=== PATIENT | male | born 1970 | race Caucasian/White ===

== ENCOUNTER 2022-03-16 14:18 | Emergency (ER) | payer BC, MEDICAID ==
[~2022-03-16] VITALS: Ht 188 cm; Wt 73.0 kg
[2022-03-17 03:20] LABS: Basophils # (auto) 0.1 10 ^3/uL (0-0.2); Eosinophils # (auto) 0 10 ^3/uL (0-0.8)
[2022-03-17 03:22] LABS: Basophils % (auto) 0.9 % (0.0-2.0); Eosinophils % (auto) 0.6 % (0.0-7.0); Hematocrit 37.8 % (41.0-53.0); Hemoglobin 12.9 g/dL (13.5-17.5); Lymphocytes % (auto) 25.7 % (10.0-50.0); Mean Corpuscular Hgb Conc. 34.2 g/dL (32.0-36.0); Mean Corpuscular Volume 108.1 fL (80.0-100.0); Monocytes # (auto) 0.8 10 ^3/uL (0-1.3); Monocytes % (auto) 9.9 % (0.0-12.0); Neutrophils # (auto) 4.8 10 ^3/uL (1.6-8.6); Neutrophils % (auto) 62.9 % (37.0-80.0); Nucleated Red Blood Cells % 0.1 %; Red Blood Cells 3.49 10^6/uL (4.5-5.90); Red Cell Distribution Width 13.6 % (11.8-14.3); White Blood Cell 7.7 10^3/uL (4.4-10.8)
[2022-03-17 03:32] LABS: Albumin 1.9 g/dL (3.4-5.0); BUN/Creatinine Ratio 11.1; Calcium 7.4 mg/dL (8.5-10.1); Potassium 3.3 mmol/L (3.5-5.1)
[2022-03-17 03:59] LABS: Bilirubin, Total 0.8 mg/dL (0.2-1.0); Total Protein 6.1 g/dL (6.4-8.2)
[2022-03-17 09:05] LABS: Urine Bacteria NONE SEEN /hpf (None Seen); Urine Blood Negative /uL (Negative); Urine Mucus MODERATE (None Seen); Urine Specific Gravity 1.029 (1.001-1.035); Urine WBC 2 /hpf (0 - 3)
[2022-03-17 09:26] LABS: Amphetamine Screen, Urine NEGATIVE (NEGATIVE); Barbiturate Scree,Urine NEGATIVE (NEGATIVE); Benzodiazephine Screen, Urine POSITIVE (NEGATIVE); Cannabinoid Screen, Urine POSITIVE (NEGATIVE); Cocaine Screen, Urine NEGATIVE (NEGATIVE); Opiate Scree,Urine NEGATIVE (NEGATIVE); Phencyclidine Screen, Urine NEGATIVE (NEGATIVE)
[2022-03-17] MEDS ORDERED: SODIUM CHLORIDE 0.9% 1,000 ML IV ONE ×2 (10:00→15:15)
[2022-03-17] MEDS ORDERED: PANTOPRAZOLE 40 MG/10 ML VIAL INJ IV ONE (10:00)
[2022-03-17] MEDS ORDERED: LORazepam 2MG/ML-1ML VIAL IV ONE (15:15)
[2022-03-17] MEDS ORDERED: POTASSIUM EFFERVESENT TAB 25 MEQ PO ONE (16:30)
[2022-03-18] MEDS ORDERED: CITALOPRAM HYDROBR 20 MG TAB PO ONE (07:00)
[2022-03-18] MEDS ORDERED: ACETAMINOPHEN 325 MG TAB PO ONE (21:00)
[2022-03-18] MEDS ORDERED: TEMAZEPAM 15 MG CAP PO ONE (23:30)
[2022-03-19] MEDS ORDERED: CITALOPRAM HYDROBR 20 MG TAB PO ONE (10:30)
[2022-03-19 11:35] VITALS: BP 131/79
== END 2022-03-19 12:12 | disposition short-term general hospital (02) ==
LOC: EDUNIT# 14:18 → ER 14:18 → EDBD 14:18 → ER 03-19 12:12
DX: R45.851 Suicidal ideations (principal); F32.9 Major depressive disorder, single episode, unspecified; E46 Unspecified protein-calorie malnutrition; E87.6 Hypokalemia; F10.10 Alcohol abuse, uncomplicated; F12.10 Cannabis abuse, uncomplicated; Y90.8 Blood alcohol level of 240 mg/100 ml or more; Z20.822 Contact with and (suspected) exposure to COVID-19
CPT/HCPCS: 36415; 74176; 80053; 80307; 80320; 81001; 85025; 87426; 96361; 96374; 96375; 99285; C9113; J2060; J7030

== ENCOUNTER 2022-08-09 21:35 | Inpatient (IN) | payer MEDICAID ==
[~2022-08-09] VITALS: Ht 188 cm; Wt 92.2 kg
[2022-08-09 22:32] LABS: Basophils # (auto) 0.1 10 ^3/uL (0-0.2); Eosinophils # (auto) 0 10 ^3/uL (0-0.8); Lymphocytes # (auto) 1.3 10 ^3/uL (0.4-5.4); Nucleated Red Blood Cells % 0.2 %
[2022-08-09 22:33] LABS: Basophils % (auto) 0.4 % (0.0-2.0); Eosinophils % (auto) 0.3 % (0.0-7.0); Hematocrit 45.6 % (41.0-53.0); Hemoglobin 15.5 g/dL (13.5-17.5); Lymphocytes % (auto) 10.5 % (10.0-50.0); Mean Corpuscular Hemoglobin 34.5 pg (28.0-32.0); Mean Corpuscular Volume 101.6 fL (80.0-100.0); Monocytes # (auto) 0.9 10 ^3/uL (0-1.3); Monocytes % (auto) 7.1 % (0.0-12.0); Neutrophils # (auto) 9.8 10 ^3/uL (1.6-8.6); Neutrophils % (auto) 81.7 % (37.0-80.0); Red Blood Cells 4.48 10^6/uL (4.5-5.90); Red Cell Distribution Width 13.3 % (11.8-14.3)
[2022-08-09 22:45] LABS: Albumin 3.2 g/dL (3.4-5.0); Calcium 8.9 mg/dL (8.5-10.1); Potassium 3.1 mmol/L (3.5-5.1)
[2022-08-09 22:48] LABS: BUN/Creatinine Ratio 14.5 (10.0-20.0); Bilirubin, Total 1.1 mg/dL (0.2-1.0); Total Protein 7.7 g/dL (6.4-8.2)
[2022-08-09 23:33] LABS: Amphetamine Screen, Urine NEGATIVE (NEGATIVE); Barbiturate Scree,Urine NEGATIVE (NEGATIVE); Benzodiazephine Screen, Urine POSITIVE (NEGATIVE); Cannabinoid Screen, Urine POSITIVE (NEGATIVE); Urine Bacteria NONE SEEN /hpf (None Seen); Urine Blood Negative /uL (Negative); Urine Hyaline Cast MOD /lpf (0 - 2); Urine Mucus FEW (None Seen); Urine Specific Gravity 1.021 (1.001-1.035); Urine WBC 5 /hpf (0 - 3)
[2022-08-09 23:41] LABS: Cocaine Screen, Urine NEGATIVE (NEGATIVE); Opiate Scree,Urine NEGATIVE (NEGATIVE); Phencyclidine Screen, Urine NEGATIVE (NEGATIVE)
[2022-08-10] MEDS ORDERED: IOHEXOL 300 MG/ML 100ML BOTTLE IJ ONE (00:43)
[2022-08-10] MEDS ORDERED: MORPHINE SULFATE 4 MG/ML SYR/VIAL IV ONE (01:00)
[2022-08-10] MEDS ORDERED: ONDANSETRON HCL 4 MG/2 ML VIAL IV ONE (01:00)
[2022-08-10] MEDS ORDERED: cefTRIAXone 1GM/50ML D5W 50 ML IV ONE (03:30)
[2022-08-10] MEDS ORDERED: LACTATED RINGER'S 2,250 ML IV ONE (03:30)
[2022-08-10] MEDS ORDERED: LORazepam 2MG/ML-1ML VIAL IV ONE (06:00)
[2022-08-10] MEDS ORDERED: PANTOPRAZOLE 80 MG in SODIUM CHL 0.9% 100 ML IV ONE ×2 (06:00→10:00)
[2022-08-10] MEDS ORDERED: PANTOPRAZOLE 40mg/50ML NS AE 50 ML IV ONE (06:00)
[2022-08-10] MEDS ORDERED: ACETAMINOPHEN 325 MG TAB PO PRN (06:45)
[2022-08-10] MEDS ORDERED: SODIUM CHLORIDE 0.9% 1,000 ML IV SCH (06:45)
[2022-08-10] MEDS ORDERED: NITROGLYCERIN 0.4 MG SL TAB SL PRN (06:45)
[2022-08-10] MEDS ORDERED: ONDANSETRON HCL 4 MG/2 ML VIAL IV PRN (06:45)
[2022-08-10] MEDS ORDERED: DOCUSATE SOD 100 MG CAP PO PRN (06:45)
[2022-08-10] MEDS ORDERED: MORPHINE SULFATE INJ 2 MG/ml SYRG IV PRN ×2 (06:45)
[2022-08-10] MEDS ORDERED: POTASSIUM CHL 20MEQ/100ML 100 ML IV ONE (07:00)
[2022-08-10 07:33] LABS: Basophils # (auto) 0.1 10 ^3/uL (0-0.2); Eosinophils # (auto) 0 10 ^3/uL (0-0.8); Lymphocytes # (auto) 1.7 10 ^3/uL (0.4-5.4); Mean Corpuscular Hemoglobin 35.1 pg (28.0-32.0); Monocytes # (auto) 0.7 10 ^3/uL (0-1.3); Red Cell Distribution Width 13.3 % (11.8-14.3); White Blood Cell 9.9 10^3/uL (4.4-10.8)
[2022-08-10 07:35] LABS: Basophils % (auto) 0.8 % (0.0-2.0); Eosinophils % (auto) 0.3 % (0.0-7.0); Hematocrit 35.9 % (41.0-53.0); Hemoglobin 12.8 g/dL (13.5-17.5); Lymphocytes % (auto) 17.3 % (10.0-50.0); Mean Corpuscular Hgb Conc. 35.8 g/dL (32.0-36.0); Mean Corpuscular Volume 98.1 fL (80.0-100.0); Monocytes % (auto) 7.1 % (0.0-12.0); Neutrophils # (auto) 7.4 10 ^3/uL (1.6-8.6); Neutrophils % (auto) 74.5 % (37.0-80.0); Nucleated Red Blood Cells % 0.1 %; Red Blood Cells 3.66 10^6/uL (4.5-5.90)
[2022-08-10 08:05] LABS: Albumin 2.7 g/dL (3.4-5.0); Calcium 8.2 mg/dL (8.5-10.1); Potassium 3.6 mmol/L (3.5-5.1)
[2022-08-10 08:10] LABS: BUN/Creatinine Ratio 14.5 (10.0-20.0); Bilirubin, Total 1.4 mg/dL (0.2-1.0)
[2022-08-10] MEDS: cefTRIAXone 1GM/50ML D5W 50 ML IV SCH (09:45)
[2022-08-10] MEDS ORDERED: FOLIC ACID 1 MG TAB PO SCH (10:00)
[2022-08-10] MEDS ORDERED: THIAMINE HCL 100 MG TAB PO SCH (10:00)
[2022-08-10] MEDS ORDERED: MULTIPLE VITAMIN TAB PO SCH (10:00)
[2022-08-10] MEDS ORDERED: PANTOPRAZOLE 40 MG/10 ML VIAL INJ IV ONE (12:00)
[2022-08-10] MEDS: FOLIC ACID 1 MG, MULTIPLE VITAMIN 10 ML, MAGNESIUM SULF SDV 50% 8 MEQ, THIAMINE INJ 100... INJ SCH ×5 (13:04)
[2022-08-10] MEDS: LORazepam 2MG/ML-1ML VIAL IV PRN ×2 (14:47→22:05)
[2022-08-10] MEDS ORDERED: OCTREOTIDE ACETATE 100 MCG in SODIUM CHL 0.9% 50 ML IV ONE (16:15)
[2022-08-10] MEDS: OCTREOTIDE ACETATE 500 MCG in SODIUM CHL 0.9% 99 ML IV SCH (18:29)
[2022-08-10] MEDS: SODIUM CHLORIDE 0.9% 1,000 ML IV SCH (18:30)
[2022-08-10] MEDS: PANTOPRAZOLE 40 MG/10 ML VIAL INJ IV SCH (22:15)
[2022-08-11] VITALS (8 sets, daily range): BP systolic 104–169; BP diastolic 70–99
[2022-08-11] MEDS: SODIUM CHLORIDE 0.9% 1,000 ML IV SCH ×3 (02:15→22:39)
[2022-08-11] MEDS: OCTREOTIDE ACETATE 500 MCG in SODIUM CHL 0.9% 99 ML IV SCH (02:25)
[2022-08-11] MEDS: HYDROcodone-ACET 5/325MG TAB PO PRN ×4 (05:56→21:29)
[2022-08-11 06:41] LABS: Eosinophils # (auto) 0.1 10 ^3/uL (0-0.8); Lymphocytes # (auto) 1.7 10 ^3/uL (0.4-5.4); Mean Corpuscular Volume 100.5 fL (80.0-100.0); Monocytes # (auto) 0.4 10 ^3/uL (0-1.3)
[2022-08-11 06:43] LABS: Basophils # (auto) 0 10 ^3/uL (0-0.2); Basophils % (auto) 0.6 % (0.0-2.0); Eosinophils % (auto) 1.5 % (0.0-7.0); Hematocrit 39.9 % (41.0-53.0); Lymphocytes % (auto) 27.2 % (10.0-50.0); Mean Corpuscular Hemoglobin 35.2 pg (28.0-32.0); Neutrophils # (auto) 4.1 10 ^3/uL (1.6-8.6); Neutrophils % (auto) 64.7 % (37.0-80.0); Nucleated Red Blood Cells % 0.2 %; Red Blood Cells 3.98 10^6/uL (4.5-5.90); Red Cell Distribution Width 13.1 % (11.8-14.3); White Blood Cell 6.3 10^3/uL (4.4-10.8)
[2022-08-11 06:57] LABS: INR 1.09 (0.9-1.15); Partial Thromboplastin Time 30.4 sec (24.6-33.4)
[2022-08-11 07:01] LABS: Potassium 3.1 mmol/L (3.5-5.1)
[2022-08-11 07:09] LABS: Albumin 2.9 g/dL (3.4-5.0); BUN/Creatinine Ratio 8.6 (10.0-20.0); Bilirubin, Total 1.8 mg/dL (0.2-1.0); Calcium 8.4 mg/dL (8.5-10.1); Total Protein 7.2 g/dL (6.4-8.2)
[2022-08-11] MEDS: cefTRIAXone 1GM/50ML D5W 50 ML IV SCH (09:40)
[2022-08-11] MEDS: PANTOPRAZOLE 40 MG/10 ML VIAL INJ IV SCH ×2 (09:41→21:28)
[2022-08-11] MEDS: FOLIC ACID 1 MG, MULTIPLE VITAMIN 10 ML, MAGNESIUM SULF SDV 50% 8 MEQ, THIAMINE INJ 100... INJ SCH ×5 (14:02)
[2022-08-12 05:00] VITALS: BP 157/98
[2022-08-12] MEDS: HYDROcodone-ACET 5/325MG TAB PO PRN (05:37)
[2022-08-12 06:32] LABS: Basophils # (auto) 0.1 10 ^3/uL (0-0.2); Basophils % (auto) 0.8 % (0.0-2.0); Eosinophils # (auto) 0.2 10 ^3/uL (0-0.8); Eosinophils % (auto) 2.9 % (0.0-7.0); Hematocrit 36.8 % (41.0-53.0); Hemoglobin 13.1 g/dL (13.5-17.5); Lymphocytes # (auto) 1.4 10 ^3/uL (0.4-5.4); Lymphocytes % (auto) 22.2 % (10.0-50.0); Mean Corpuscular Hemoglobin 35.2 pg (28.0-32.0); Mean Corpuscular Hgb Conc. 35.6 g/dL (32.0-36.0); Mean Corpuscular Volume 98.9 fL (80.0-100.0); Monocytes # (auto) 0.5 10 ^3/uL (0-1.3); Monocytes % (auto) 7.8 % (0.0-12.0); Neutrophils # (auto) 4.2 10 ^3/uL (1.6-8.6); Neutrophils % (auto) 66.3 % (37.0-80.0); Nucleated Red Blood Cells % 0.1 %; Red Blood Cells 3.72 10^6/uL (4.5-5.90); White Blood Cell 6.4 10^3/uL (4.4-10.8)
[2022-08-12 06:39] LABS: Albumin 2.5 g/dL (3.4-5.0); BUN/Creatinine Ratio 8.2 (10.0-20.0); Bilirubin, Total 1.2 mg/dL (0.2-1.0); Calcium 8.4 mg/dL (8.5-10.1); Total Protein 6.4 g/dL (6.4-8.2)
[2022-08-12 07:30] VITALS: BP 144/98
[2022-08-12] MEDS: SODIUM CHLORIDE 0.9% 1,000 ML IV SCH (08:15)
[2022-08-12 09:00] VITALS: BP 144/98
[2022-08-12] MEDS ORDERED: LIDOCAINE VISCOUS 2% 15ML UD ONE (09:22)
[2022-08-12] MEDS ORDERED: SODIUM CHLORIDE LOCK 10 ML ONE (09:22)
[2022-08-12] MEDS: fentaNYL CITRATE 100 MCG/2 ML VL ONE ×2 (09:47→09:50)
[2022-08-12] MEDS: diphenhdrAMINE HCL 50 MG/1 ML VL ONE ×2 (09:47→09:50)
[2022-08-12] MEDS: MIDAZOLAM HCL 5 MG/ML-1ML VIAL ONE ×3 (09:47→09:55)
[2022-08-12] MEDS: cefTRIAXone 1GM/50ML D5W 50 ML IV SCH (11:24)
[2022-08-12] MEDS: SUCRALFATE 1 GM/10 ML ORAL SUSP PO SCH ×3 (11:24→20:59)
[2022-08-12] MEDS: PANTOPRAZOLE 40 MG/10 ML VIAL INJ IV SCH ×2 (11:24→20:59)
[2022-08-12] MEDS: FOLIC ACID 1 MG, MULTIPLE VITAMIN 10 ML, MAGNESIUM SULF SDV 50% 8 MEQ, THIAMINE INJ 100... INJ SCH ×5 (12:00)
[2022-08-12 13:08] VITALS: BP 140/94
[2022-08-12 16:52] VITALS: BP 141/95
[2022-08-12] MEDS: LORazepam 2MG/ML-1ML VIAL IV PRN ×2 (17:40→21:00)
[2022-08-12 22:00] VITALS: BP 138/93
[2022-08-13] MEDS: LORazepam 2MG/ML-1ML VIAL IV PRN ×2 (00:31→06:19)
[2022-08-13 05:00] VITALS: BP 137/96
[2022-08-13] MEDS: SUCRALFATE 1 GM/10 ML ORAL SUSP PO SCH ×2 (06:19→10:43)
[2022-08-13 07:30] VITALS: BP 122/81
[2022-08-13 09:36] VITALS: BP 122/81
[2022-08-13] MEDS ORDERED: SUCR1TAB22 OR (09:58)
[2022-08-13] MEDS ORDERED: MULT-351 PO (09:58)
[2022-08-13] MEDS ORDERED: THIA100T10 PO (09:58)
[2022-08-13] MEDS ORDERED: LORA0.5T20 PO (09:58)
[2022-08-13] MEDS ORDERED: PANT40TA2 PO (09:58)
[2022-08-13] MEDS ORDERED: MULTIPLE VITAMINS W/ MINERALS TAB PO SCH (10:00)
[2022-08-13] MEDS ORDERED: THIAMINE HCL 100 MG TAB PO SCH (10:00)
[2022-08-13] MEDS ORDERED: POTASSIUM EFFERVESENT TAB 25 MEQ PO SCH (10:00)
[2022-08-13] MEDS: PANTOPRAZOLE 40 MG/10 ML VIAL INJ IV SCH (10:41)
[2022-08-13 12:21] VITALS: BP 122/81
[2022-08-13 13:09] VITALS: BP 109/58
== END 2022-08-13 14:00 | disposition home or self-care (01) | DRG 241 ==
LOC: ER 21:35 → EDBD 21:35 → TELE 08-10 06:31 → TELE-WESTW 08-10 23:47
PROVIDERS: ADMIT Nurse Practitioner Family; ATTEND Nurse Practitioner Acute Care
PROC: 0DB68ZX Excision of Stomach, Via Natural or Artificial Opening Endoscopic, Diagnostic (ICD-10-PCS; 2022-08-12)
PROC: 0DB58ZX Excision of Esophagus, Via Natural or Artificial Opening Endoscopic, Diagnostic (ICD-10-PCS; 2022-08-12)
PROC: 0DB98ZX Excision of Duodenum, Via Natural or Artificial Opening Endoscopic, Diagnostic (ICD-10-PCS; principal; 2022-08-12 09:38)
DX: K29.71 Gastritis, unspecified, with bleeding (principal); K22.11 Ulcer of esophagus with bleeding; K26.4 Chronic or unspecified duodenal ulcer with hemorrhage; E87.1 Hypo-osmolality and hyponatremia; E87.6 Hypokalemia; F32.A Depression, unspecified; I10 Essential (primary) hypertension; D72.829 Elevated white blood cell count, unspecified; R82.4 Acetonuria; F10.139 Alcohol abuse with withdrawal, unspecified; Y90.9 Presence of alcohol in blood, level not specified; D64.9 Anemia, unspecified; K44.9 Diaphragmatic hernia without obstruction or gangrene; Z86.73 Personal history of transient ischemic attack (TIA), and cerebral infarction without residual deficits; I25.2 Old myocardial infarction; Z80.0 Family history of malignant neoplasm of digestive organs; Z80.1 Family history of malignant neoplasm of trachea, bronchus and lung; Z80.43 Family history of malignant neoplasm of testis; Z82.49 Family history of ischemic heart disease and other diseases of the circulatory system; Z79.899 Other long term (current) drug therapy
CPT/HCPCS: 36415; 43239; 74177; 80053; 80307; 80320; 81001; 83690; 84484; 85025; 85610; 85730; 87086; 93005; 96361; 96365; 96367; 96375; 99291; C9113; G0378; J0696; J2250; J2405; J3480

== ENCOUNTER 2022-09-12 21:37 | Inpatient (IN) | payer MEDICAID ==
[~2022-09-12] VITALS: Ht 188 cm; Wt 80.4 kg
[~2022-09-12 21:37] MED LIST: LORA0.5T20 PO; MULT-351 PO; PANT40TA2 PO; SUCR1TAB22 OR; THIA100T10 PO
[2022-09-12 22:24] LABS: Basophils # (auto) 0.1 10 ^3/uL (0-0.2); Basophils % (auto) 0.7 % (0.0-2.0); Eosinophils # (auto) 0 10 ^3/uL (0-0.8); Eosinophils % (auto) 0.6 % (0.0-7.0); Hematocrit 45.4 % (41.0-53.0); Hemoglobin 15.6 g/dL (13.5-17.5); Lymphocytes # (auto) 1.4 10 ^3/uL (0.4-5.4); Lymphocytes % (auto) 18.3 % (10.0-50.0); Mean Corpuscular Hemoglobin 34.8 pg (28.0-32.0); Mean Corpuscular Hgb Conc. 34.3 g/dL (32.0-36.0); Mean Corpuscular Volume 101.3 fL (80.0-100.0); Monocytes # (auto) 0.6 10 ^3/uL (0-1.3); Monocytes % (auto) 8.3 % (0.0-12.0); Neutrophils # (auto) 5.5 10 ^3/uL (1.6-8.6); Neutrophils % (auto) 72.1 % (37.0-80.0); Nucleated Red Blood Cells % 0.1 %; Red Blood Cells 4.48 10^6/uL (4.5-5.90); White Blood Cell 7.6 10^3/uL (4.4-10.8)
[2022-09-12 22:40] LABS: Albumin 3.4 g/dL (3.4-5.0); BUN/Creatinine Ratio 11.5 (10.0-20.0); Calcium 8.9 mg/dL (8.5-10.1); INR 1.07 (0.9-1.15); Magnesium 1.7 mg/dL (1.6-2.6); Partial Thromboplastin Time 29.9 sec (24.6-33.4); Potassium 4.6 mmol/L (3.5-5.1); Salicylate < 1.7 mg/dL (2.8-20.0)
[2022-09-12 22:43] LABS: Bilirubin, Total 0.6 mg/dL (0.2-1.0); Total Protein 8.4 g/dL (6.4-8.2)
[2022-09-12 22:44] LABS: Acetaminophen < 2.0 ug/mL (10-30)
[2022-09-13] MEDS ORDERED: SODIUM CHLORIDE 0.9% 1,000 ML IV ONE ×2 (01:00→17:30)
[2022-09-13] MEDS ORDERED: LORazepam 0.5 MG TAB PO ONE (14:30)
[2022-09-13] MEDS: FOLIC ACID 1 MG, MULTIPLE VITAMIN 10 ML, MAGNESIUM SULF SDV 50% 8 MEQ, THIAMINE INJ 100... INJ SCH ×5 (15:45)
[2022-09-13] MEDS ORDERED: NITROGLYCERIN 0.4 MG SL TAB SL PRN (17:15)
[2022-09-13] MEDS ORDERED: ACETAMINOPHEN 325 MG TAB PO PRN (17:15)
[2022-09-13] MEDS ORDERED: MORPHINE SULFATE INJ 2 MG/ml SYRG IV PRN (17:15)
[2022-09-13] MEDS ORDERED: FOLIC ACID 1 MG in D5W 5% 50 ML INJ SCH (17:15)
[2022-09-13] MEDS ORDERED: THIAMINE 100mg/ml INJ (200mg/2ml VIAL) IV ONE (17:15)
[2022-09-13] MEDS ORDERED: ONDANSETRON HCL 4 MG/2 ML VIAL IV PRN (17:15)
[2022-09-13] MEDS ORDERED: MULTIPLE VITAMIN TAB PO ONE (17:15)
[2022-09-13] MEDS: SODIUM CHLORIDE 0.9% 1,000 ML IV SCH (21:43)
[2022-09-13] MEDS: SUCRALFATE 1 GM TAB PO SCH (22:36)
[2022-09-13] MEDS: PANTOPRAZOLE 40 MG TAB PO SCH (22:36)
[2022-09-14] MEDS: SODIUM CHLORIDE 0.9% 1,000 ML IV SCH ×3 (02:58→18:41)
[2022-09-14 03:19] LABS: Basophils # (auto) 0 10 ^3/uL (0-0.2); Basophils % (auto) 0.7 % (0.0-2.0); Hemoglobin 13.9 g/dL (13.5-17.5); Monocytes # (auto) 0.5 10 ^3/uL (0-1.3); Neutrophils # (auto) 4.1 10 ^3/uL (1.6-8.6)
[2022-09-14 03:22] LABS: Eosinophils # (auto) 0.2 10 ^3/uL (0-0.8); Eosinophils % (auto) 2.5 % (0.0-7.0); Hematocrit 38.9 % (41.0-53.0); Lymphocytes # (auto) 1.5 10 ^3/uL (0.4-5.4); Lymphocytes % (auto) 23.9 % (10.0-50.0); Mean Corpuscular Hemoglobin 35.7 pg (28.0-32.0); Mean Corpuscular Hgb Conc. 35.6 g/dL (32.0-36.0); Mean Corpuscular Volume 100.3 fL (80.0-100.0); Monocytes % (auto) 8.3 % (0.0-12.0); Neutrophils % (auto) 64.6 % (37.0-80.0); Red Blood Cells 3.88 10^6/uL (4.5-5.90); Red Cell Distribution Width 13.6 % (11.8-14.3); White Blood Cell 6.3 10^3/uL (4.4-10.8)
[2022-09-14 03:48] LABS: Albumin 2.8 g/dL (3.4-5.0); BUN/Creatinine Ratio 16.3 (10.0-20.0); Calcium 8.5 mg/dL (8.5-10.1); Potassium 3.6 mmol/L (3.5-5.1)
[2022-09-14 03:49] LABS: Bilirubin, Total 1.6 mg/dL (0.2-1.0); Total Protein 7.2 g/dL (6.4-8.2)
[2022-09-14] MEDS: SUCRALFATE 1 GM TAB PO SCH ×4 (06:42→22:11)
[2022-09-14] MEDS: PANTOPRAZOLE 40 MG TAB PO SCH ×2 (09:50→22:12)
[2022-09-14] MEDS ORDERED: MULTIPLE VITAMIN TAB PO SCH (10:00)
[2022-09-14] MEDS ORDERED: FOLIC ACID 1 MG TAB PO SCH (10:00)
[2022-09-14] MEDS ORDERED: THIAMINE 100mg/ml INJ (200mg/2ml VIAL) IV SCH (10:00)
[2022-09-14] MEDS: LORazepam 2MG/ML-1ML VIAL IV PRN ×3 (10:06→20:43)
[2022-09-14] MEDS ORDERED: FOLIC ACID 1 MG, MULTIPLE VITAMIN 10 ML, MAGNESIUM SULF SDV 50% 8 MEQ, THIAMINE INJ 100... INJ SCH ×5 (12:00)
[2022-09-14 13:16] LABS: Urine Bacteria NONE SEEN /hpf (None Seen); Urine Blood Negative /uL (Negative); Urine Specific Gravity 1.006 (1.001-1.035); Urine WBC <1 /hpf (0 - 3)
[2022-09-14 13:37] LABS: Alcohol, Urine < 3.0 mg/dL (0-10); Amphetamine Screen, Urine POSITIVE (NEGATIVE); Barbiturate Scree,Urine NEGATIVE (NEGATIVE); Benzodiazephine Screen, Urine NEGATIVE (NEGATIVE); Cannabinoid Screen, Urine NEGATIVE (NEGATIVE); Cocaine Screen, Urine NEGATIVE (NEGATIVE); Opiate Scree,Urine NEGATIVE (NEGATIVE); Phencyclidine Screen, Urine NEGATIVE (NEGATIVE)
[2022-09-14] MEDS: FOLIC ACID 1 MG, MULTIPLE VITAMIN 10 ML, MAGNESIUM SULF SDV 50% 8 MEQ, THIAMINE INJ 100... INJ SCH ×5 (13:37)
[2022-09-14] MEDS ORDERED: FLUO1TAB14 PO (23:58)
[2022-09-14] MEDS ORDERED: GABA100C9 PO (23:59)
[2022-09-15] MEDS: LORazepam 2MG/ML-1ML VIAL IV PRN ×3 (00:06→11:24)
[2022-09-15] MEDS: SODIUM CHLORIDE 0.9% 1,000 ML IV SCH ×2 (02:35→10:55)
[2022-09-15 05:00] VITALS: BP 140/95
[2022-09-15] MEDS: SUCRALFATE 1 GM TAB PO SCH ×2 (06:17→11:23)
[2022-09-15] MEDS: PANTOPRAZOLE 40 MG TAB PO SCH (10:00)
[2022-09-15] MEDS ORDERED: FOLITAB22 PO (10:24)
[2022-09-15] MEDS ORDERED: MULT-351 PO (10:24)
[2022-09-15] MEDS ORDERED: THIA100T5 PO (10:24)
[2022-09-15 11:47] VITALS: BP 140/105
== END 2022-09-15 14:00 | disposition home or self-care (01) | DRG 775 ==
LOC: EDBD 21:37 → ER 21:37 → TELE 09-13 17:16 → TELE-WESTW 09-14 23:00 → WEST WING 09-14 23:04
PROVIDERS: ADMIT Nurse Practitioner Family; ATTEND Nurse Practitioner Family
DX: F10.139 Alcohol abuse with withdrawal, unspecified (principal); G92.8 Other toxic encephalopathy; E87.1 Hypo-osmolality and hyponatremia; K29.70 Gastritis, unspecified, without bleeding; F19.10 Other psychoactive substance abuse, uncomplicated; F15.10 Other stimulant abuse, uncomplicated; F32.A Depression, unspecified; Y90.9 Presence of alcohol in blood, level not specified; K20.90 Esophagitis, unspecified without bleeding; Z86.73 Personal history of transient ischemic attack (TIA), and cerebral infarction without residual deficits; I25.2 Old myocardial infarction; Z59.00 Homelessness unspecified; Z80.1 Family history of malignant neoplasm of trachea, bronchus and lung; Z80.0 Family history of malignant neoplasm of digestive organs; Z80.43 Family history of malignant neoplasm of testis; Z82.49 Family history of ischemic heart disease and other diseases of the circulatory system
CPT/HCPCS: 36415; 80053; 80307; 80320; 80329; 81001; 83735; 83880; 84484; 85025; 85610; 85730; 93005; 96361; 96365; G0378